=== PATIENT | female | born 1950 | race Caucasian/White ===

== ENCOUNTER 2018-08-07 13:55 | Observation (INO) ==
[2018-08-07] MEDS ORDERED: ASPIRIN 325 MG TABLET PO STA (14:37)
[2018-08-07 14:54] LABS: Basophils # 0.2 10*3/uL (0.0-0.2); Basophils % 1.4 % (0.0-0.8); Eosinophils # 0.3 10*3/uL (0.0-0.87); Eosinophils % 3.2 % (0.00-10.9); Hematocrit 41.4 VOL% (35.7-47.0); Hemoglobin 13.3 GM/DL (12.0-16.0); Immature Granulocytes % 1.4 %; Immature Granulocytes Absolute 0.15 #; Lymphocytes # 2.4 10*3/uL (1.4-4.0); Mean Corpuscular HGB Conc 32.1 GM/DL (32-36); Mean Corpuscular Volume 87.5 FL (87-102); Mean Platelet Volume 9.6 FL (9.6-12.0); Monocytes % 9.5 % (1.7-12.7); Neutrophils % 62.5 % (38.7-73.9); Platelet Count 320 T/CUMM (130-400); Red Blood Count 4.73 MC/CUMM (3.8-5.5); Red Cell Distribution Width 13.3 % (9.3-17.3); White Blood Count 10.8 T/CUMM (4-12)
[2018-08-07 15:02] LABS: PT Patient Result 10.4 SECS; Partial Thromboplastin Time 24.5 SECS (0-40)
[2018-08-07 15:22] LABS: Alanine Aminotransferase 19 U/L (13-56); Albumin 3.3 G/DL (3.4-5.0); Alkaline Phosphatase 134 U/L (45-117); Aspartate Amino Transferase 17 U/L (0-37); Bilirubin,Total < 0.39 MG/DL (0.2-1.0); Blood Urea Nitrogen 9 MG/DL (7-18); Glucose 118 MG/DL (74-106); Osmolality,Calculated 280.3 MOS/KG (273-304); Total Protein 7.3 G/DL (6.4-8.3)
[2018-08-07] MEDS ORDERED: ENOXAPARIN 100 MG/ML SYRINGE SUBCUT STA (15:39)
[2018-08-07] MEDS ORDERED: ZALEPLON 5 MG CAPSULE PO PRN (15:44)
[2018-08-07] MEDS ORDERED: guaiFENesin/DM ER 600-30 MG TABLET PO PRN (15:44)
[2018-08-07] MEDS ORDERED: PROMETHAZINE 25 MG TABLET PO PRN (15:44)
[2018-08-07] MEDS ORDERED: POTASSIUM CHLORIDE 20 MEQ TABLET PO PRN (15:44)
[2018-08-07] MEDS ORDERED: MAGNESIUM SULF RIDER 4 GM in PREMIX 1 EACH IV PRN (15:44)
[2018-08-07] MEDS ORDERED: DOCUSATE SODIUM 100 MG CAPSULE PO PRN (15:44)
[2018-08-07] MEDS ORDERED: ONDANSETRON 4 MG/2 ML VIAL IV PRN (15:44)
[2018-08-07] MEDS ORDERED: NICOTINE 21 MG/24 HR PATCH TRANSDERM PRN (15:44)
[2018-08-07] MEDS ORDERED: BISACODYL 5 MG TABLET PO PRN (15:44)
[2018-08-07] MEDS ORDERED: diphenhydrAMINE CAP 25 MG CAPSULE PO PRN (15:44)
[2018-08-07] MEDS ORDERED: MAGNESIUM SULF RIDER 2 GM in PREMIX 1 EACH IV PRN (15:44)
[2018-08-07] MEDS ORDERED: SODIUM CHLORIDE 0.9% 1,000 ML IV SCH (16:30)
[2018-08-07] MEDS ORDERED: FAMOTIDINE 20 MG TABLET PO PRN (16:43)
[2018-08-07] MEDS ORDERED: MORPHINE 4 MG/1 ML VIAL IV PRN (16:43)
[2018-08-07] MEDS ORDERED: COMBIVENT RESPIMAT INHALER INH PRN (16:43)
[2018-08-07] MEDS ORDERED: DIFLORASONE TOP PRN (16:43)
[2018-08-07] MEDS ORDERED: NITROGLYCERIN SL 0.4 MG TABLET SL STA (16:43)
[2018-08-07] MEDS ORDERED: SECUKINUMAB 150 MG SUBCUT SCH (16:45)
[2018-08-07] MEDS ORDERED: ALBUTEROL/IPRATROPIUM 3 ML NEB RESP TX PRN (16:45)
[2018-08-07] MEDS: THEOPHYLLINE ER 300 MG TABLET PO SCH (17:55)
[2018-08-07] MEDS ORDERED: GABAPENTIN 100 MG CAPSULE PO SCH (21:00)
[2018-08-07] MEDS ORDERED: MONTELUKAST 10 MG TABLET PO SCH (21:00)
[2018-08-07] MEDS ORDERED: ATORVASTATIN 20 MG TABLET PO SCH (21:00)
[2018-08-07] MEDS: BUDESONIDE/FORMOTEROL 160-4.5 INHALER 6 GM INH SCH (21:35)
[2018-08-07] MEDS: CYCLOBENZAPRINE 10 MG TABLET PO SCH (21:36)
[2018-08-07] MEDS: LOSARTAN 25 MG TABLET PO SCH (21:36)
[2018-08-07] MEDS: POTASSIUM CHLORIDE 10 MEQ TABLET PO SCH (21:36)
[2018-08-07] MEDS: NEBIVOLOL 10 MG TABLET PO SCH (21:36)
[2018-08-07] MEDS: CLORAZEPATE 3.75 MG TABLET PO SCH (21:36)
[2018-08-07] MEDS: MULTIVITAMIN (OCUVITE) TABLET PO SCH (21:37)
[2018-08-07] MEDS: PRIMIDONE 50 MG TABLET PO SCH (21:37)
[2018-08-07 22:44] LABS: Apearance,Urine CLEAR (Clear); Bilirubin,Urine Negative (Negative); Blood, Urine Negative (Negative); Glucose,Urine (UA) Negative (Negative); Ketones,Urine Negative (Negative); Nitrite,Urine Negative (Negative); Protein,Urine Negative; RBC,Urine <1 /HPF (0-4); Squamous Epithelial Cell,Urine Occasional /HPF (0-10); Urine Color Straw (Yellow); Urine Specific Gravity 1.005 (1.001-1.035); Urine Urobilinogen < 2.0 EU/DL (0.2-1.0); WBC,Urine 1 /HPF (0-6)
[2018-08-08 04:39] LABS: Basophils # 0.2 10*3/uL (0.0-0.2); Basophils % 1.4 % (0.0-0.8); Eosinophils # 0.4 10*3/uL (0.0-0.87); Eosinophils % 3.3 % (0.00-10.9); Hematocrit 38.2 VOL% (35.7-47.0); Hemoglobin 12.4 GM/DL (12.0-16.0); Immature Granulocytes % 0.9 %; Immature Granulocytes Absolute 0.11 #; Lymphocytes # 3.1 10*3/uL (1.4-4.0); Lymphocytes % 25.4 % (21.3-54.2); Mean Corpuscular HGB Conc 32.5 GM/DL (32-36); Mean Corpuscular Volume 88.4 FL (87-102); Mean Platelet Volume 9.9 FL (9.6-12.0); Monocytes % 9.9 % (1.7-12.7); Neutrophils % 59.1 % (38.7-73.9); Platelet Count 289 T/CUMM (130-400); Red Blood Count 4.32 MC/CUMM (3.8-5.5); Red Cell Distribution Width 13.4 % (9.3-17.3); White Blood Count 12.2 T/CUMM (4-12)
[2018-08-08 04:53] LABS: Blood Urea Nitrogen 12 MG/DL (7-18); CKMB % 9.1 %; Calcium 8.9 MG/DL (8.5-10.1); Glucose 115 MG/DL (74-106); Osmolality,Calculated 281.3 MOS/KG (273-304); Troponin I < 0.015 NG/ML (0.00-0.045)
[2018-08-08] MEDS ORDERED: FUROSEMIDE 20 MG TABLET PO SCH (09:00)
[2018-08-08] MEDS ORDERED: FLUoxetine 20 MG CAPSULE PO SCH (09:00)
[2018-08-08] MEDS ORDERED: GABAPENTIN 100 MG CAPSULE PO SCH (09:00)
[2018-08-08] MEDS ORDERED: CLOPIDOGREL 75 MG TABLET PO SCH (09:00)
[2018-08-08] MEDS ORDERED: ASPIRIN EC 81 MG TABLET PO SCH (09:00)
[2018-08-08] MEDS ORDERED: PANTOPRAZOLE 40 MG TABLET PO SCH (09:00)
[2018-08-08] MEDS: NEBIVOLOL 10 MG TABLET PO SCH (10:30)
[2018-08-08] MEDS: THEOPHYLLINE ER 300 MG TABLET PO SCH (10:30)
[2018-08-08] MEDS: MULTIVITAMIN (OCUVITE) TABLET PO SCH (10:30)
[2018-08-08] MEDS: POTASSIUM CHLORIDE 10 MEQ TABLET PO SCH (10:31)
[2018-08-08] MEDS: LOSARTAN 25 MG TABLET PO SCH (10:31)
[2018-08-08] MEDS: PRIMIDONE 50 MG TABLET PO SCH (10:31)
[2018-08-08] MEDS: CYCLOBENZAPRINE 10 MG TABLET PO SCH (10:31)
[2018-08-08] MEDS: BUDESONIDE/FORMOTEROL 160-4.5 INHALER 6 GM INH SCH (10:33)
[2018-08-08] MEDS: CLORAZEPATE 3.75 MG TABLET PO SCH (10:35)
[2018-08-08 12:08] VITALS: BP 159/72
== END 2018-08-08 12:25 | disposition home or self-care (01) ==
LOC: EDBD → EDUNIT# → N.ED 13:55 → N.EDINP 13:55 → N.TELES 16:37
PROVIDERS: ADMIT Internal Medicine Interventional Cardiology; ATTEND Internal Medicine Interventional Cardiology

== ENCOUNTER 2019-05-15 08:03 | Inpatient (IN) ==
[2019-05-17] MEDS ORDERED: VANCOMYCIN INJ 1,000 MG in SODIUM CHLORIDE 0.9% 250 ML IV ONE (09:44)
[2019-05-17] MEDS ORDERED: DEXTROSE 10% 250 ML BAG IV PRN (09:44)
[2019-05-17] MEDS ORDERED: GLUCAGON 1 MG VIAL IM PRN (09:44)
[2019-05-17 10:10] LABS: Basophils # 0.1 10*3/uL (0.0-0.2); Basophils % 0.7 % (0.0-0.8); Eosinophils # 0.3 10*3/uL (0.0-0.87); Eosinophils % 2.9 % (0.00-10.9); Hematocrit 39.1 VOL% (35.7-47.0); Hemoglobin 12.9 GM/DL (12.0-16.0); Immature Granulocytes % 1.1 %; Immature Granulocytes Absolute 0.12 #; Lymphocytes # 2.5 10*3/uL (1.4-4.0); Lymphocytes % 22.4 % (21.3-54.2); Mean Corpuscular Volume 87.5 FL (87-102); Mean Platelet Volume 9.3 FL (9.6-12.0); Monocytes % 11.8 % (1.7-12.7); Neutrophils % 61.1 % (38.7-73.9); Platelet Count 377 T/CUMM (130-400); Red Blood Count 4.47 MC/CUMM (3.8-5.5); Red Cell Distribution Width 14.1 % (9.3-17.3); White Blood Count 11.3 T/CUMM (4-12)
[2019-05-17 10:59] LABS: Albumin 3.5 G/DL (3.4-5.0); Bilirubin,Total 0.4 MG/DL (0.2-1.0); Calcium 9.6 MG/DL (8.5-10.1); Osmolality,Calculated 272.8 MOS/KG (273-304); Total Protein 7.7 G/DL (6.4-8.3)
[2019-05-17 11:11] LABS: ABG Base Excess 1.2 MMOL/L (-2.5-2.5); ABG HCO3 25.5 MMOL/L (20-26); ABG PCO2 38.3 MM HG (35-48); ABG PO2 81.6 MM HG (80-95); ABG TCO2 22.2 MMOL/L (23-27)
[2019-05-17] MEDS ORDERED: NITROGLYCERIN SL 0.4 MG TABLET SL PRN (11:59)
[2019-05-17] MEDS ORDERED: CLORAZEPATE 3.75 MG TABLET PO PRN (13:09)
[2019-05-17] MEDS ORDERED: hydrALAZINE 20 MG/1 ML VIAL IV PRN (13:10)
[2019-05-17] MEDS: ASPIRIN EC 81 MG TABLET PO SCH (13:43)
[2019-05-17] MEDS: NEBIVOLOL 10 MG TABLET PO SCH ×2 (13:43→20:18)
[2019-05-17] MEDS: LOSARTAN 25 MG TABLET PO SCH ×2 (13:43→20:18)
[2019-05-17] MEDS: ISOSORBIDE MONONITRATE 30 MG TABLET PO SCH (13:44)
[2019-05-17] MEDS: FUROSEMIDE 40 MG TABLET PO SCH (13:44)
[2019-05-17] MEDS: POTASSIUM CHLORIDE 10 MEQ TABLET PO SCH ×2 (13:44→20:18)
[2019-05-17] MEDS: CHLORHEXIDINE 4% SOLN 118 ML BOTTLE TOP SCH ×2 (15:22→20:19)
[2019-05-17] MEDS: CHLORHEXIDINE 0.12% ORAL RINSE 60 ML BOTTLE SWISH/SPIT SCH ×2 (20:42→21:10)
[2019-05-17] MEDS ORDERED: ATORVASTATIN 40 MG TABLET PO SCH (21:00)
[2019-05-18] MEDS ORDERED: PAPAVERINE 60 MG/2 ML VIAL ONE (04:22)
[2019-05-18] MEDS ORDERED: VANCOMYCIN 500 MG VIAL ONE (04:22)
[2019-05-18] MEDS ORDERED: VANCOMYCIN 1,000 MG VIAL ONE ×2 (04:22→06:47)
[2019-05-18] MEDS ORDERED: VANCOMYCIN INJ 1,000 MG in SODIUM CHLORIDE 0.9% 250 ML IV ONE (05:30)
[2019-05-18] MEDS ORDERED: HEPARIN/NACL 0.9% 2 UNITS/ML 500 ML IV ONE (06:19)
[2019-05-18] MEDS ORDERED: PHENYLEPHRINE DRIP 20 MG/250 ML PREMIX IV ONE ×2 (06:19→12:44)
[2019-05-18] MEDS ORDERED: SUFentanil 250 MCG/5 ML AMP ONE (06:20)
[2019-05-18] MEDS ORDERED: MIDAZOLAM 10 MG/2 ML VIAL ONE (06:20)
[2019-05-18] MEDS ORDERED: NITROGLYCERIN DRIP 50 MG/250 ML BOTTLE IV ONE (06:20)
[2019-05-18] MEDS ORDERED: AMINOCAPROIC ACID 5,000 MG/20 ML VIAL ONE (06:21)
[2019-05-18 07:32] LABS: ABG HCO3 23.6 MMOL/L (20-26); ABG PCO2 47.7 MM HG (35-48); ABG PH 7.333 (7.35-7.45); ABG TCO2 22.7 MMOL/L (23-27); Glucose Heart Surgery 124 MG/DL (74-106); Hematocrit Heart Surgery 35.2 PERCENT (37-47); Hemoglobin Heart Surgery 11.4 G/DL (12.0-16.0); Ionized Calcium Arterial 1.52 MMOL/L (1.21-1.46); PCO2 Patient Temp Arterial 47.7 MMHG; PH Patient Temp Arterial 7.333; Patient Temperature 37 CELCIUS; Potassium Heart/CVR 3.3 MMOL/L (3.5-5.1); Sodium Heart/CVR 140 MMOL/L (135-145)
[2019-05-18 08:05] LABS: Apearance,Urine CLEAR (Clear); Bacteria,Urine Occasional /HPF (Few); Bilirubin,Urine Negative (Negative); Blood, Urine Negative (Negative); Glucose,Urine (UA) Negative (Negative); Hyaline Casts,Urine 2 /LPF (0-3); Ketones,Urine Negative (Negative); Mucus,Urine Many /LPF (Occasional); Nitrite,Urine Negative (Negative); Protein,Urine Negative; RBC,Urine 2 /HPF (0-4); Squamous Epithelial Cell,Urine Occasional /HPF (0-10); Urine Color Amber (Yellow); Urine Specific Gravity 1.019 (1.001-1.035); Urine Urobilinogen < 2.0 EU/DL (0.2-1.0); WBC,Urine 3 /HPF (0-6)
[2019-05-18] MEDS ORDERED: POTASSIUM CHLORIDE RIDER 100 ML IV ONE (08:09)
[2019-05-18] MEDS ORDERED: NITROPRUSSIDE 50 MG/2 ML VIAL ONE ×2 (08:09→09:18)
[2019-05-18] MEDS ORDERED: CALCIUM CHLORIDE 1,000 MG/10 ML SYRINGE IV ONE (08:09)
[2019-05-18] MEDS ORDERED: SODIUM BICARBONATE 50 MEQ/50 ML VIAL IV ONE ×2 (08:09→11:19)
[2019-05-18] MEDS ORDERED: ALBUMIN 5% 12.5 GM/250 ML VIAL IV ONE (08:10)
[2019-05-18 08:57] LABS: Hematocrit Heart Surgery 23.1 PERCENT (37-47); Hemoglobin Heart Surgery 7.4 G/DL (12.0-16.0); PCO2 Patient Temp Venous 33.6 MM HG; PH Patient Temp Venous 7.477; PO2 Patient Temp Venous 32.2 MM HG; Potassium Heart/CVR 4.2 MMOL/L (3.5-5.1); VBG Base Excess 1.6 MEQ/L (0-4); VBG HCO3 25.6 MEQ/L (24-28); VBG Oxygen Saturation 77.1 %; VBG PCO2 38.8 MMHG (41-51); VBG PH 7.432; VBG PO2 39.6 MMHG (17-40)
[2019-05-18] MEDS ORDERED: PHENYLEPHRINE DRIP 40 MG/250 ML PREMIX IV ONE (09:18)
[2019-05-18 09:27] LABS: Hematocrit Heart Surgery 24.2 PERCENT (37-47); Hemoglobin Heart Surgery 7.8 G/DL (12.0-16.0); PH Patient Temp Venous 7.481; PO2 Patient Temp Venous 33.6 MM HG; Potassium Heart/CVR 3.7 MMOL/L (3.5-5.1); VBG Base Excess 0.8 MEQ/L (0-4); VBG HCO3 24.9 MEQ/L (24-28); VBG Oxygen Saturation 79.6 %; VBG PH 7.436; VBG PO2 41.4 MMHG (17-40)
[2019-05-18 10:06] LABS: Hemoglobin Heart Surgery 9.6 G/DL (12.0-16.0); PCO2 Patient Temp Venous 29.6 MM HG; PH Patient Temp Venous 7.525; PO2 Patient Temp Venous 33.6 MM HG; Potassium Heart/CVR 3.5 MMOL/L (3.5-5.1); VBG Base Excess 1.2 MEQ/L (0-4); VBG HCO3 24.6 MEQ/L (24-28); VBG Oxygen Saturation 79.7 %; VBG PCO2 33.8 MMHG (41-51); VBG PH 7.479; VBG PO2 41.5 MMHG (17-40)
[2019-05-18 10:40] LABS: Hematocrit Heart Surgery 23.1 PERCENT (37-47); Hemoglobin Heart Surgery 7.4 G/DL (12.0-16.0); PH Patient Temp Venous 7.455; PO2 Patient Temp Venous 33.1 MM HG; Potassium Heart/CVR 3.9 MMOL/L (3.5-5.1); VBG Base Excess 1.5 MEQ/L (0-4); VBG HCO3 25.4 MEQ/L (24-28); VBG Oxygen Saturation 67.5 %; VBG PH 7.455; VBG PO2 33.1 MMHG (17-40)
[2019-05-18] MEDS ORDERED: THROMBIN TOPICAL (RECOMBINANT) 5,000 UNIT VIAL TOP ONE ×2 (10:44→11:44)
[2019-05-18 11:10] LABS: ABG Base Excess -1.7 MMOL/L (-2.5-2.5); ABG PCO2 37.4 MM HG (35-48); ABG PH 7.395 (7.35-7.45); ABG TCO2 21.5 MMOL/L (23-27); Glucose Heart Surgery 206 MG/DL (74-106); Hemoglobin Heart Surgery 7.4 G/DL (12.0-16.0); Ionized Calcium Arterial 1.62 MMOL/L (1.21-1.46); PCO2 Patient Temp Arterial 37.4 MMHG; PH Patient Temp Arterial 7.395; Patient Temperature 37 CELCIUS; Potassium Heart/CVR 3.4 MMOL/L (3.5-5.1); Sodium Heart/CVR 137 MMOL/L (135-145)
[2019-05-18] MEDS ORDERED: DEXTROSE 5% KCL 20 MEQ 20 MEQ/1,000 ML BAG IV ONE (11:19)
[2019-05-18] MEDS ORDERED: PROTAMINE SULFATE 250 MG/25 ML VIAL IV ONE (11:19)
[2019-05-18] MEDS ORDERED: HEPARIN 10,000 UNIT/10 ML VIAL ONE (11:19)
[2019-05-18] MEDS ORDERED: MANNITOL 100 GM/500 ML BAG IV ONE (11:19)
[2019-05-18] MEDS ORDERED: FUROSEMIDE 20 MG/2 ML VIAL ONE (11:19)
[2019-05-18] MEDS ORDERED: LIDOCAINE 2% 5 ML VIAL ONE ×2 (11:19→12:44)
[2019-05-18] MEDS ORDERED: MAGNESIUM SULFATE 5 GM/10 ML VIAL IV ONE (11:19)
[2019-05-18] MEDS ORDERED: methylPREDNISolone SOD SUC 1,000 MG/8 ML VIAL ONE (11:19)
[2019-05-18] MEDS ORDERED: ALBUMIN 25% 25 GM/100 ML VIAL IV ONE (11:19)
[2019-05-18] MEDS ORDERED: POTASSIUM CHLORIDE 20 MEQ/10 ML VIAL ONE (11:20)
[2019-05-18] MEDS ORDERED: PROTAMINE SULFATE 50 MG/5 ML VIAL IV ONE (11:20)
[2019-05-18] MEDS: NEBIVOLOL 10 MG TABLET PO SCH (11:53)
[2019-05-18] MEDS: CHLORHEXIDINE 4% SOLN 118 ML BOTTLE TOP SCH (11:53)
[2019-05-18] MEDS: LOSARTAN 25 MG TABLET PO SCH (11:53)
[2019-05-18] MEDS: POTASSIUM CHLORIDE 10 MEQ TABLET PO SCH (11:53)
[2019-05-18] MEDS: ISOSORBIDE MONONITRATE 30 MG TABLET PO SCH (11:53)
[2019-05-18] MEDS: ASPIRIN EC 81 MG TABLET PO SCH (11:53)
[2019-05-18] MEDS: FUROSEMIDE 40 MG TABLET PO SCH (11:53)
[2019-05-18] MEDS: CHLORHEXIDINE 0.12% ORAL RINSE 60 ML BOTTLE SWISH/SPIT SCH ×2 (11:53→20:38)
[2019-05-18] MEDS ORDERED: CALCIUM CHLORIDE 1,000 MG/10 ML VIAL IV ONE (12:44)
[2019-05-18] MEDS ORDERED: ePHEDrine 50 MG/ML AMP ONE (12:45)
[2019-05-18] MEDS ORDERED: ETOMIDATE 40 MG/20 ML VIAL IV ONE (12:45)
[2019-05-18] MEDS ORDERED: DEXAMETHASONE 4 MG/1 ML VIAL ONE (12:45)
[2019-05-18] MEDS ORDERED: MINERAL OIL/PETROLATUM OPH OINT 3.5 GM TUBE ONE (12:45)
[2019-05-18] MEDS ORDERED: PHENYLEPHRINE 1 MG/10 ML SYRINGE IV ONE (12:45)
[2019-05-18] MEDS ORDERED: ONDANSETRON 4 MG/2 ML VIAL ONE (12:45)
[2019-05-18] MEDS ORDERED: ROCURONIUM 100 MG/10 ML VIAL IV ONE (12:46)
[2019-05-18] MEDS ORDERED: SODIUM CHLORIDE 0.9% 250 ML IV ONE (12:46)
[2019-05-18] MEDS ORDERED: SODIUM CHLORIDE 0.9% 1,000 ML IV ONE (12:46)
[2019-05-18] MEDS ORDERED: LACTATED RINGERS 1,000 ML IV ONE (12:46)
[2019-05-18] MEDS ORDERED: SEVOFLURANE 1 UNIT/15 MINUTE INH ONE (12:50)
[2019-05-18] MEDS ORDERED: INSULIN REGULAR 100 UNIT/ML IV ONE (12:52)
[2019-05-18] MEDS ORDERED: DEXTROSE 10% 250 ML BAG IV PRN ×2 (12:52)
[2019-05-18] MEDS ORDERED: ONDANSETRON 4 MG/2 ML VIAL IV PRN (12:52)
[2019-05-18] MEDS ORDERED: MIDAZOLAM 2 MG/2 ML VIAL IV PRN (12:52)
[2019-05-18] MEDS ORDERED: NITROPRUSSIDE 100 MG in DEXTROSE 5% 250 ML IV PRN (12:52)
[2019-05-18] MEDS ORDERED: INSULIN REGULAR 100 UNIT/ML IV PRN (12:52)
[2019-05-18] MEDS ORDERED: MIDAZOLAM 10 MG/2 ML VIAL IV PRN (12:52)
[2019-05-18] MEDS ORDERED: PHENYLEPHRINE DRIP 40 MG/250 ML PREMIX IV PRN (12:52)
[2019-05-18] MEDS ORDERED: CHLORHEXIDINE 4% SOLN 118 ML BOTTLE TOP PRN (12:52)
[2019-05-18] MEDS ORDERED: ACETAMINOPHEN 650 MG SUPP RECTAL PRN (12:52)
[2019-05-18] MEDS ORDERED: CALCIUM CHLORIDE 1,000 MG/10 ML SYRINGE IV PRN (12:52)
[2019-05-18] MEDS ORDERED: MORPHINE 10 MG/1 ML VIAL IV PRN (12:52)
[2019-05-18] MEDS ORDERED: VECURONIUM 10 MG VIAL IV PRN ×2 (12:52)
[2019-05-18] MEDS ORDERED: MAGNESIUM SULF RIDER 2 GM in PREMIX 1 EACH IV PRN (12:52)
[2019-05-18] MEDS ORDERED: MAGNESIUM SULF RIDER 4 GM in PREMIX 1 EACH IV PRN (12:52)
[2019-05-18 12:55] LABS: ABG Base Excess -2.2 MMOL/L (-2.5-2.5); ABG HCO3 22.6 MMOL/L (20-26); ABG Oxygen Saturation 97.9 % (95-100); ABG PCO2 45.8 MM HG (35-48); ABG PH 7.325 (7.35-7.45); ABG TCO2 22.3 MMOL/L (23-27); Glucose Heart Surgery 195 MG/DL (74-106); Hematocrit Heart Surgery 25.4 PERCENT (37-47); Hemoglobin Heart Surgery 8.2 G/DL (12.0-16.0); Potassium Heart/CVR 3.7 MMOL/L (3.5-5.1)
[2019-05-18 13:00] LABS: Basophils # 0.1 10*3/uL (0.0-0.2); Basophils % 0.4 % (0.0-0.8); Eosinophils # 0.1 10*3/uL (0.0-0.87); Eosinophils % 0.7 % (0.00-10.9); Hemoglobin 8.3 GM/DL (12.0-16.0); Immature Granulocytes % 1.2 %; Immature Granulocytes Absolute 0.21 #; Lymphocytes # 1.5 10*3/uL (1.4-4.0); Mean Corpuscular HGB Conc 31.9 GM/DL (32-36); Mean Corpuscular Volume 90.3 FL (87-102); Mean Platelet Volume 9.7 FL (9.6-12.0); Monocytes % 6.4 % (1.7-12.7); Neutrophils % 82.3 % (38.7-73.9); Platelet Count 380 T/CUMM (130-400); Red Blood Count 2.88 MC/CUMM (3.8-5.5); Red Cell Distribution Width 14.3 % (9.3-17.3); White Blood Count 16.9 T/CUMM (4-12)
[2019-05-18 13:26] LABS: INR 1.1; PT Patient Result 11.5 SECS (9.6-12.2)
[2019-05-18 13:28] LABS: CKMB % 5.6 %
[2019-05-18 13:40] LABS: Albumin 3.2 G/DL (3.4-5.0); Bilirubin,Total 0.9 MG/DL (0.2-1.0); Osmolality,Calculated 286.1 MOS/KG (273-304); Total Protein 5.7 G/DL (6.4-8.3)
[2019-05-18] MEDS: SODIUM CHLORIDE 0.45% 1,000 ML IV SCH ×2 (13:47)
[2019-05-18] MEDS: ALBUMIN 5% 12.5 GM in PREMIX 1 EACH IV PRN ×2 (13:48→16:14)
[2019-05-18] MEDS: POTASSIUM CHLORIDE RIDER 20 MEQ in PREMIX 1 EACH IV PRN ×3 (13:49→16:04)
[2019-05-18 14:13] LABS: Troponin I 5.99 NG/ML (0.00-0.045)
[2019-05-18] MEDS: INSULIN REGULAR DRIP 100 ML IV SCH (14:25)
[2019-05-18] MEDS: MORPHINE 4 MG/1 ML VIAL IV PRN ×2 (15:40→20:35)
[2019-05-18 15:52] LABS: ABG Base Excess -1.8 MMOL/L (-2.5-2.5); ABG HCO3 22.9 MMOL/L (20-26); ABG Oxygen Saturation 99.4 % (95-100); ABG PCO2 50.5 MM HG (35-48); ABG PH 7.303 (7.35-7.45); ABG TCO2 22.9 MMOL/L (23-27); Glucose Heart Surgery 160 MG/DL (74-106); Hematocrit Heart Surgery 31.9 PERCENT (37-47); Hemoglobin Heart Surgery 10.3 G/DL (12.0-16.0); Potassium Heart/CVR 4.4 MMOL/L (3.5-5.1)
[2019-05-18] MEDS: LACTATED RINGERS 250 ML IV PRN ×4 (16:14→18:29)
[2019-05-18 17:54] LABS: ABG Base Excess -1.6 MMOL/L (-2.5-2.5); ABG HCO3 23.1 MMOL/L (20-26); ABG Oxygen Saturation 98.2 % (95-100); ABG PCO2 49.9 MM HG (35-48); ABG PH 7.309 (7.35-7.45); Glucose Heart Surgery 124 MG/DL (74-106); Hematocrit Heart Surgery 30.9 PERCENT (37-47); Potassium Heart/CVR 4.5 MMOL/L (3.5-5.1)
[2019-05-18] MEDS: SODIUM CHLORIDE 0.9% 1,000 ML IV SCH (19:49)
[2019-05-18 20:07] LABS: ABG HCO3 23.5 MMOL/L (20-26); ABG Oxygen Saturation 98.4 % (95-100); ABG PCO2 47.8 MM HG (35-48); ABG TCO2 23.2 MMOL/L (23-27); Glucose Heart Surgery 98 MG/DL (74-106); Hematocrit Heart Surgery 29.8 PERCENT (37-47); Hemoglobin Heart Surgery 9.6 G/DL (12.0-16.0); Potassium Heart/CVR 4.5 MMOL/L (3.5-5.1)
[2019-05-18] MEDS: POTASSIUM CHLORIDE RIDER 10 MEQ in PREMIX 1 EACH IV PRN (20:32)
[2019-05-18 20:37] LABS: CKMB % 6.6 %
[2019-05-18 20:48] LABS: Troponin I 6.67 NG/ML (0.00-0.045)
[2019-05-18 20:54] LABS: ABG Base Excess -1.2 MMOL/L (-2.5-2.5); ABG HCO3 23.4 MMOL/L (20-26); ABG Oxygen Saturation 98.9 % (95-100); ABG PCO2 47.8 MM HG (35-48); ABG PH 7.327 (7.35-7.45); ABG TCO2 23.1 MMOL/L (23-27); Glucose Heart Surgery 111 MG/DL (74-106); Hemoglobin Heart Surgery 9.7 G/DL (12.0-16.0); Potassium Heart/CVR 5.1 MMOL/L (3.5-5.1)
[2019-05-18] MEDS ORDERED: FUROSEMIDE 40 MG/4 ML VIAL IV ONE (21:04)
[2019-05-19] LABS: ABG HCO3 24.4 MMOL/L (20-26); ABG Oxygen Saturation 97.5 % (95-100); ABG PCO2 51.5 MM HG (35-48); ABG PH 7.323 (7.35-7.45); ABG PO2 96.5 MM HG (80-95); ABG TCO2 24.5 MMOL/L (23-27); Glucose Heart Surgery 132 MG/DL (74-106); Hematocrit Heart Surgery 31.1 PERCENT (37-47); Potassium Heart/CVR 4.5 MMOL/L (3.5-5.1)
[2019-05-19] MEDS: VANCOMYCIN INJ 1,000 MG in SODIUM CHLORIDE 0.9% 250 ML IV SCH ×3 (00:36→23:50)
[2019-05-19] MEDS: MORPHINE 4 MG/1 ML VIAL IV PRN ×2 (00:44→23:49)
[2019-05-19] MEDS: POTASSIUM CHLORIDE RIDER 10 MEQ in PREMIX 1 EACH IV PRN (01:00)
[2019-05-19 02:57] LABS: ABG Base Excess -0.8 MMOL/L (-2.5-2.5); ABG HCO3 23.8 MMOL/L (20-26); ABG Oxygen Saturation 97.5 % (95-100); ABG PCO2 51.4 MM HG (35-48); ABG PH 7.312 (7.35-7.45); ABG PO2 95.5 MM HG (80-95); ABG TCO2 23.8 MMOL/L (23-27); Glucose Heart Surgery 130 MG/DL (74-106); Hematocrit Heart Surgery 31.5 PERCENT (37-47); Hemoglobin Heart Surgery 10.2 G/DL (12.0-16.0); Potassium Heart/CVR 4.6 MMOL/L (3.5-5.1)
[2019-05-19 03:47] LABS: ABG Base Excess -0.4 MMOL/L (-2.5-2.5); ABG HCO3 24.1 MMOL/L (20-26); ABG Oxygen Saturation 97.9 % (95-100); ABG PCO2 49.7 MM HG (35-48); ABG PH 7.329 (7.35-7.45); ABG TCO2 23.6 MMOL/L (23-27); Glucose Heart Surgery 124 MG/DL (74-106); Hematocrit Heart Surgery 34.6 PERCENT (37-47); Hemoglobin Heart Surgery 11.2 G/DL (12.0-16.0); Potassium Heart/CVR 4.4 MMOL/L (3.5-5.1)
[2019-05-19 03:52] LABS: Basophils # 0.1 10*3/uL (0.0-0.2); Basophils % 0.3 % (0.0-0.8); Hematocrit 29.5 VOL% (35.7-47.0); Hemoglobin 9.6 GM/DL (12.0-16.0); Immature Granulocytes % 0.5 %; Immature Granulocytes Absolute 0.08 #; Lymphocytes # 1.6 10*3/uL (1.4-4.0); Lymphocytes % 9.4 % (21.3-54.2); Mean Corpuscular HGB Conc 32.5 GM/DL (32-36); Mean Corpuscular Volume 88.1 FL (87-102); Mean Platelet Volume 10.1 FL (9.6-12.0); Monocytes % 10.5 % (1.7-12.7); Neutrophils % 79.3 % (38.7-73.9); Platelet Count 246 T/CUMM (130-400); Red Blood Count 3.35 MC/CUMM (3.8-5.5); Red Cell Distribution Width 14.9 % (9.3-17.3); White Blood Count 17.1 T/CUMM (4-12)
[2019-05-19] MEDS ORDERED: FUROSEMIDE 40 MG/4 ML VIAL IV ONE (03:58)
[2019-05-19] MEDS: POTASSIUM CHLORIDE RIDER 20 MEQ in PREMIX 1 EACH IV PRN ×2 (04:00→08:09)
[2019-05-19 04:16] LABS: Albumin 3.6 G/DL (3.4-5.0); Bilirubin,Direct 0.19 MG/DL (0.0-0.20); Bilirubin,Total 0.6 MG/DL (0.2-1.0); Calcium 8.7 MG/DL (8.5-10.1); Osmolality,Calculated 284.1 MOS/KG (273-304)
[2019-05-19 04:20] LABS: CKMB % 7.6 %
[2019-05-19 04:37] LABS: Troponin I 8.5 NG/ML (0.00-0.045)
[2019-05-19 08:04] LABS: ABG Base Excess 0.3 MMOL/L (-2.5-2.5); ABG HCO3 24.7 MMOL/L (20-26); ABG Oxygen Saturation 98.2 % (95-100); ABG PCO2 52.2 MM HG (35-48); ABG PH 7.322 (7.35-7.45); ABG TCO2 24.8 MMOL/L (23-27); Glucose Heart Surgery 114 MG/DL (74-106); Hematocrit Heart Surgery 30.9 PERCENT (37-47); Potassium Heart/CVR 4.2 MMOL/L (3.5-5.1)
[2019-05-19] MEDS ORDERED: CLORAZEPATE 3.75 MG TABLET PO PRN (09:21)
[2019-05-19] MEDS: oxyCODONE/ACETAMINOPHEN 5-325 MG TABLET PO PRN ×3 (09:42→22:30)
[2019-05-19] MEDS: CHLORHEXIDINE 0.12% ORAL RINSE 60 ML BOTTLE SWISH/SPIT SCH ×2 (09:43→21:36)
[2019-05-19] MEDS: INSULIN REGULAR 100 UNIT/ML SUBCUT SCH ×4 (11:08→19:36)
[2019-05-19 12:59] LABS: CKMB % 7.9 %
[2019-05-19 13:01] LABS: Troponin I 9.54 NG/ML (0.00-0.045)
[2019-05-19] MEDS: INSULIN REGULAR DRIP 100 ML IV SCH (14:08)
[2019-05-19] MEDS: SODIUM CHLORIDE 0.45% 1,000 ML IV SCH ×2 (14:08→21:32)
[2019-05-19] MEDS: ACETAMINOPHEN 325 MG TABLET PO PRN (16:24)
[2019-05-19] MEDS: LOSARTAN 25 MG TABLET PO SCH (21:34)
[2019-05-19] MEDS: NEBIVOLOL 10 MG TABLET PO SCH (21:35)
[2019-05-20] MEDS: INSULIN REGULAR 100 UNIT/ML SUBCUT SCH ×3 (00:58→08:30)
[2019-05-20] MEDS: ACETAMINOPHEN 325 MG TABLET PO PRN (04:15)
[2019-05-20 05:32] LABS: Basophils # 0.1 10*3/uL (0.0-0.2); Basophils % 0.7 % (0.0-0.8); Eosinophils # 0.2 10*3/uL (0.0-0.87); Eosinophils % 1.1 % (0.00-10.9); Hematocrit 29.9 VOL% (35.7-47.0); Hemoglobin 9.3 GM/DL (12.0-16.0); Immature Granulocytes % 0.8 %; Immature Granulocytes Absolute 0.13 #; Lymphocytes # 2.2 10*3/uL (1.4-4.0); Lymphocytes % 12.9 % (21.3-54.2); Mean Corpuscular HGB Conc 31.1 GM/DL (32-36); Mean Corpuscular Volume 91.2 FL (87-102); Mean Platelet Volume 10.1 FL (9.6-12.0); Monocytes % 12.4 % (1.7-12.7); Neutrophils % 72.1 % (38.7-73.9); Platelet Count 266 T/CUMM (130-400); Red Blood Count 3.28 MC/CUMM (3.8-5.5); Red Cell Distribution Width 15.3 % (9.3-17.3); White Blood Count 16.9 T/CUMM (4-12)
[2019-05-20 05:46] LABS: Albumin 2.8 G/DL (3.4-5.0); Bilirubin,Direct 0.18 MG/DL (0.0-0.20); Bilirubin,Total 1.2 MG/DL (0.2-1.0); Calcium 8.7 MG/DL (8.5-10.1); Osmolality,Calculated 274.8 MOS/KG (273-304)
[2019-05-20] MEDS: POTASSIUM CHLORIDE RIDER 20 MEQ in PREMIX 1 EACH IV PRN ×2 (06:03→08:31)
[2019-05-20] MEDS ORDERED: CLORAZEPATE 3.75 MG TABLET PO PRN (08:03)
[2019-05-20] MEDS ORDERED: MAGNESIUM SULF RIDER 4 GM in PREMIX 1 EACH IV PRN (08:08)
[2019-05-20] MEDS ORDERED: ZALEPLON 5 MG CAPSULE PO PRN (08:08)
[2019-05-20] MEDS ORDERED: MAGNESIUM HYDROXIDE SUSP 30 ML UDCUP PO PRN (08:08)
[2019-05-20] MEDS ORDERED: ONDANSETRON 4 MG/2 ML VIAL IV PRN (08:08)
[2019-05-20] MEDS ORDERED: DEXTROSE 10% 250 ML BAG IV PRN (08:08)
[2019-05-20] MEDS ORDERED: ACETAMINOPHEN 325 MG TABLET PO PRN (08:08)
[2019-05-20] MEDS ORDERED: GLUCAGON 1 MG VIAL IM PRN ×2 (08:08)
[2019-05-20] MEDS ORDERED: POTASSIUM CHLORIDE 20 MEQ TABLET PO PRN (08:08)
[2019-05-20] MEDS ORDERED: ALUMINUM/MAGNES/SIMETH MAX STR 30 ML UDCUP PO PRN (08:08)
[2019-05-20] MEDS ORDERED: DEXTROSE 50% 25 GM/50 ML VIAL IV PRN (08:08)
[2019-05-20] MEDS ORDERED: MAGNESIUM SULF RIDER 2 GM in PREMIX 1 EACH IV PRN (08:08)
[2019-05-20] MEDS: CHLORHEXIDINE 0.12% ORAL RINSE 60 ML BOTTLE SWISH/SPIT SCH ×3 (08:14→21:36)
[2019-05-20] MEDS: oxyCODONE/ACETAMINOPHEN 5-325 MG TABLET PO PRN (08:15)
[2019-05-20] MEDS: LOSARTAN 25 MG TABLET PO SCH ×2 (08:15→20:36)
[2019-05-20] MEDS: NEBIVOLOL 10 MG TABLET PO SCH ×2 (08:15→20:36)
[2019-05-20] MEDS ORDERED: SODIUM CHLOR 0.45% KCL 20 MEQ 20 MEQ/1,000 ML BAG IV SCH (08:30)
[2019-05-20] MEDS: KETOROLAC 30 MG/1 ML VIAL IM SCH ×2 (09:00→15:02)
[2019-05-20] MEDS: ASPIRIN EC 325 MG TABLET PO SCH (09:00)
[2019-05-20] MEDS: DOCUSATE SODIUM 100 MG CAPSULE PO SCH (09:00)
[2019-05-20] MEDS: FERROUS SULFATE 325 MG TABLET PO SCH (09:00)
[2019-05-20] MEDS ORDERED: NEBIVOLOL 10 MG TABLET PO SCH (09:00)
[2019-05-20] MEDS ORDERED: SECUKINUMAB 300 MG SUBCUT SCH (09:55)
[2019-05-20] MEDS ORDERED: DIFLORASONE TOP PRN (09:55)
[2019-05-20] MEDS: GABAPENTIN 100 MG CAPSULE PO SCH ×2 (10:55→20:35)
[2019-05-20] MEDS: PRIMIDONE 50 MG TABLET PO SCH ×2 (10:55→20:35)
[2019-05-20] MEDS: VENLAFAXINE 37.5 MG TABLET PO SCH ×2 (10:55→20:39)
[2019-05-20] MEDS: FAMOTIDINE 20 MG TABLET PO SCH ×2 (10:55→20:35)
[2019-05-20] MEDS: CYCLOBENZAPRINE 10 MG TABLET PO SCH ×2 (10:55→20:35)
[2019-05-20] MEDS: traMADol 50 MG TABLET PO SCH ×2 (10:55→20:36)
[2019-05-20] MEDS: MULTIVITAMIN (OCUVITE) TABLET PO SCH ×2 (10:55→20:35)
[2019-05-20] MEDS ORDERED: ALBUTEROL/IPRATROPIUM 3 ML NEB RESP TX PRN (11:00)
[2019-05-20] MEDS: BUDESONIDE/FORMOTEROL 160-4.5 INHALER 6 GM INH SCH ×2 (11:44→20:49)
[2019-05-20] MEDS: KETOROLAC 30 MG/1 ML VIAL IV SCH ×2 (16:15→21:39)
[2019-05-20] MEDS: THEOPHYLLINE ER 300 MG TABLET PO SCH (16:40)
[2019-05-20] MEDS: MONTELUKAST 10 MG TABLET PO SCH (20:35)
[2019-05-21] MEDS: KETOROLAC 30 MG/1 ML VIAL IV SCH ×4 (04:11→21:14)
[2019-05-21 05:06] LABS: Basophils # 0.1 10*3/uL (0.0-0.2); Basophils % 0.5 % (0.0-0.8); Eosinophils # 0.4 10*3/uL (0.0-0.87); Eosinophils % 2.9 % (0.00-10.9); Hematocrit 32.7 VOL% (35.7-47.0); Hemoglobin 9.9 GM/DL (12.0-16.0); Immature Granulocytes % 1.2 %; Immature Granulocytes Absolute 0.17 #; Lymphocytes % 13.6 % (21.3-54.2); Mean Corpuscular HGB Conc 30.3 GM/DL (32-36); Mean Corpuscular Volume 92.6 FL (87-102); Mean Platelet Volume 10.6 FL (9.6-12.0); Monocytes % 9.4 % (1.7-12.7); Neutrophils % 72.4 % (38.7-73.9); Platelet Count 242 T/CUMM (130-400); Red Blood Count 3.53 MC/CUMM (3.8-5.5); Red Cell Distribution Width 15.1 % (9.3-17.3); White Blood Count 14.7 T/CUMM (4-12)
[2019-05-21 05:21] LABS: Alanine Aminotransferase 19 U/L (13-56); Albumin 2.5 G/DL (3.4-5.0); Alkaline Phosphatase 67 U/L (45-117); Aspartate Amino Transferase 33 U/L (0-37); Bilirubin,Indirect 0.3 MG/DL (0.0-1.0); Blood Urea Nitrogen 27 MG/DL (7-18); Calcium 8.5 MG/DL (8.5-10.1); Estimated Glom Filtration Rate 78 ML/MIN; Glucose 89 MG/DL (74-106); Osmolality,Calculated 276.8 MOS/KG (273-304); Total Protein 5.9 G/DL (6.4-8.3)
[2019-05-21] MEDS ORDERED: FUROSEMIDE 40 MG/4 ML VIAL IV ONE ×2 (06:00→16:00)
[2019-05-21] MEDS ORDERED: ALBUTEROL/IPRATROPIUM 3 ML NEB RESP TX ONE (09:20)
[2019-05-21] MEDS: THEOPHYLLINE ER 300 MG TABLET PO SCH ×2 (10:01→17:19)
[2019-05-21] MEDS: traMADol 50 MG TABLET PO SCH ×2 (10:03→21:15)
[2019-05-21] MEDS: CHLORHEXIDINE 0.12% ORAL RINSE 60 ML BOTTLE SWISH/SPIT SCH ×2 (10:04→21:17)
[2019-05-21] MEDS: ASPIRIN EC 325 MG TABLET PO SCH (10:04)
[2019-05-21] MEDS: FERROUS SULFATE 325 MG TABLET PO SCH (10:05)
[2019-05-21] MEDS: FAMOTIDINE 20 MG TABLET PO SCH ×2 (10:05→21:16)
[2019-05-21] MEDS: MULTIVITAMIN (OCUVITE) TABLET PO SCH ×2 (10:05→21:15)
[2019-05-21] MEDS: CYCLOBENZAPRINE 10 MG TABLET PO SCH ×2 (10:05→21:17)
[2019-05-21] MEDS: PRIMIDONE 50 MG TABLET PO SCH ×2 (10:06→21:16)
[2019-05-21] MEDS: DOCUSATE SODIUM 100 MG CAPSULE PO SCH (10:06)
[2019-05-21] MEDS: GABAPENTIN 100 MG CAPSULE PO SCH ×2 (10:06→21:14)
[2019-05-21] MEDS: VENLAFAXINE 37.5 MG TABLET PO SCH ×2 (10:08→21:16)
[2019-05-21] MEDS: BUDESONIDE/FORMOTEROL 160-4.5 INHALER 6 GM INH SCH ×2 (10:08→21:17)
[2019-05-21] MEDS: NEBIVOLOL 10 MG TABLET PO SCH ×2 (11:31→21:15)
[2019-05-21] MEDS: LOSARTAN 25 MG TABLET PO SCH ×2 (11:32→21:16)
[2019-05-21] MEDS: NITROGLYCERIN 2% OINT 1 INCH/GM PACK TOP SCH ×2 (12:14→17:20)
[2019-05-21] MEDS: ROSUVASTATIN 20 MG TABLET PO SCH (21:15)
[2019-05-21] MEDS: MONTELUKAST 10 MG TABLET PO SCH (21:15)
[2019-05-22] MEDS: NITROGLYCERIN 2% OINT 1 INCH/GM PACK TOP SCH ×4 (00:06→17:13)
[2019-05-22] MEDS: KETOROLAC 30 MG/1 ML VIAL IV SCH ×4 (04:06→21:25)
[2019-05-22 05:04] LABS: Basophils # 0.1 10*3/uL (0.0-0.2); Basophils % 0.7 % (0.0-0.8); Eosinophils # 0.6 10*3/uL (0.0-0.87); Eosinophils % 3.6 % (0.00-10.9); Hematocrit 26.6 VOL% (35.7-47.0); Hemoglobin 8.1 GM/DL (12.0-16.0); Immature Granulocytes % 1.1 %; Lymphocytes # 2.6 10*3/uL (1.4-4.0); Lymphocytes % 15.1 % (21.3-54.2); Mean Corpuscular HGB Conc 30.5 GM/DL (32-36); Mean Corpuscular Volume 92.7 FL (87-102); Mean Platelet Volume 10.3 FL (9.6-12.0); Monocytes % 8.1 % (1.7-12.7); Neutrophils % 71.4 % (38.7-73.9); Platelet Count 309 T/CUMM (130-400); Red Blood Count 2.87 MC/CUMM (3.8-5.5); Red Cell Distribution Width 14.8 % (9.3-17.3); White Blood Count 17.5 T/CUMM (4-12)
[2019-05-22 05:27] LABS: Albumin 2.4 G/DL (3.4-5.0); Bilirubin,Direct 0.16 MG/DL (0.0-0.20); Bilirubin,Indirect 0.4 MG/DL (0.0-1.0); Bilirubin,Total 0.6 MG/DL (0.2-1.0); CKMB % 1.9 %; Calcium 8.7 MG/DL (8.5-10.1); Osmolality,Calculated 273.1 MOS/KG (273-304)
[2019-05-22 05:29] LABS: Troponin I 3.96 NG/ML (0.00-0.045)
[2019-05-22] MEDS: MULTIVITAMIN (OCUVITE) TABLET PO SCH ×2 (08:54→21:24)
[2019-05-22] MEDS: THEOPHYLLINE ER 300 MG TABLET PO SCH ×2 (08:54→17:14)
[2019-05-22] MEDS: traMADol 50 MG TABLET PO SCH ×2 (08:55→21:24)
[2019-05-22] MEDS: FAMOTIDINE 20 MG TABLET PO SCH ×2 (08:55→21:23)
[2019-05-22] MEDS: CHLORHEXIDINE 0.12% ORAL RINSE 60 ML BOTTLE SWISH/SPIT SCH ×2 (08:55→21:25)
[2019-05-22] MEDS: FERROUS SULFATE 325 MG TABLET PO SCH (08:55)
[2019-05-22] MEDS: CYCLOBENZAPRINE 10 MG TABLET PO SCH ×2 (08:55→21:22)
[2019-05-22] MEDS: VENLAFAXINE 37.5 MG TABLET PO SCH ×2 (08:55→21:23)
[2019-05-22] MEDS: GABAPENTIN 100 MG CAPSULE PO SCH ×2 (08:55→21:24)
[2019-05-22] MEDS: PRIMIDONE 50 MG TABLET PO SCH ×2 (08:56→21:23)
[2019-05-22] MEDS: DOCUSATE SODIUM 100 MG CAPSULE PO SCH (08:56)
[2019-05-22] MEDS: ASPIRIN EC 325 MG TABLET PO SCH (08:56)
[2019-05-22] MEDS: NEBIVOLOL 10 MG TABLET PO SCH ×2 (08:58→21:24)
[2019-05-22] MEDS: LOSARTAN 25 MG TABLET PO SCH ×2 (08:59→21:23)
[2019-05-22] MEDS: FUROSEMIDE 40 MG/4 ML VIAL IV SCH (12:23)
[2019-05-22] MEDS: BUDESONIDE/FORMOTEROL 160-4.5 INHALER 6 GM INH SCH ×2 (12:24→21:25)
[2019-05-22] MEDS: ROSUVASTATIN 20 MG TABLET PO SCH (21:24)
[2019-05-22] MEDS: MONTELUKAST 10 MG TABLET PO SCH (21:24)
[2019-05-23] MEDS: NITROGLYCERIN 2% OINT 1 INCH/GM PACK TOP SCH ×4 (01:09→18:17)
[2019-05-23 04:40] LABS: Basophils # 0.1 10*3/uL (0.0-0.2); Basophils % 0.8 % (0.0-0.8); Eosinophils # 0.9 10*3/uL (0.0-0.87); Eosinophils % 6.6 % (0.00-10.9); Immature Granulocytes Absolute 0.28 #; Lymphocytes # 2.7 10*3/uL (1.4-4.0); Lymphocytes % 19.3 % (21.3-54.2); Mean Corpuscular Volume 89.9 FL (87-102); Mean Platelet Volume 10.2 FL (9.6-12.0); Neutrophils % 60.3 % (38.7-73.9); Platelet Count 323 T/CUMM (130-400); Red Blood Count 2.78 MC/CUMM (3.8-5.5); Red Cell Distribution Width 14.8 % (9.3-17.3)
[2019-05-23 05:01] LABS: Calcium 8.7 MG/DL (8.5-10.1)
[2019-05-23] MEDS: oxyCODONE/ACETAMINOPHEN 5-325 MG TABLET PO PRN ×2 (06:28→12:52)
[2019-05-23] MEDS: traMADol 50 MG TABLET PO SCH ×2 (08:20→20:46)
[2019-05-23] MEDS: FAMOTIDINE 20 MG TABLET PO SCH ×2 (08:20→20:46)
[2019-05-23] MEDS: THEOPHYLLINE ER 300 MG TABLET PO SCH ×2 (08:20→16:28)
[2019-05-23] MEDS: GABAPENTIN 100 MG CAPSULE PO SCH ×2 (08:21→20:46)
[2019-05-23] MEDS: MULTIVITAMIN (OCUVITE) TABLET PO SCH ×2 (08:21→20:46)
[2019-05-23] MEDS: NEBIVOLOL 10 MG TABLET PO SCH ×2 (08:21→21:00)
[2019-05-23] MEDS: PRIMIDONE 50 MG TABLET PO SCH ×2 (08:24→20:47)
[2019-05-23] MEDS: ASPIRIN EC 81 MG TABLET PO SCH (08:24)
[2019-05-23] MEDS: VENLAFAXINE 37.5 MG TABLET PO SCH ×2 (08:24→20:47)
[2019-05-23] MEDS: LOSARTAN 25 MG TABLET PO SCH ×2 (08:24→20:47)
[2019-05-23] MEDS: CYCLOBENZAPRINE 10 MG TABLET PO SCH ×2 (08:24→20:47)
[2019-05-23] MEDS: FERROUS SULFATE 325 MG TABLET PO SCH (08:24)
[2019-05-23] MEDS: DOCUSATE SODIUM 100 MG CAPSULE PO SCH (08:24)
[2019-05-23] MEDS: FUROSEMIDE 40 MG/4 ML VIAL IV SCH (08:25)
[2019-05-23] MEDS: CHLORHEXIDINE 0.12% ORAL RINSE 60 ML BOTTLE SWISH/SPIT SCH ×2 (08:31→21:00)
[2019-05-23] MEDS: BUDESONIDE/FORMOTEROL 160-4.5 INHALER 6 GM INH SCH ×2 (08:32→20:47)
[2019-05-23] MEDS ORDERED: SODIUM CHLORIDE 0.9% 1,000 ML IV PRN (15:24)
[2019-05-23] MEDS ORDERED: FUROSEMIDE 40 MG/4 ML VIAL IV ONE (15:26)
[2019-05-23] MEDS: ROSUVASTATIN 20 MG TABLET PO SCH (20:46)
[2019-05-23] MEDS: MONTELUKAST 10 MG TABLET PO SCH (20:46)
[2019-05-24] MEDS: NITROGLYCERIN 2% OINT 1 INCH/GM PACK TOP SCH ×2 (00:07→05:05)
[2019-05-24] MEDS: oxyCODONE/ACETAMINOPHEN 5-325 MG TABLET PO PRN ×2 (00:21→10:54)
[2019-05-24 06:37] LABS: Basophils % 0.2 % (0.0-0.8); Eosinophils # 0.8 10*3/uL (0.0-0.87); Eosinophils % 6.3 % (0.00-10.9); Hemoglobin 9.8 GM/DL (12.0-16.0); Immature Granulocytes % 3.8 %; Immature Granulocytes Absolute 0.48 #; Lymphocytes # 2.4 10*3/uL (1.4-4.0); Lymphocytes % 19.4 % (21.3-54.2); Mean Corpuscular HGB Conc 31.6 GM/DL (32-36); Mean Corpuscular Volume 89.3 FL (87-102); Mean Platelet Volume 9.7 FL (9.6-12.0); Monocytes % 12.6 % (1.7-12.7); Neutrophils % 57.7 % (38.7-73.9); Platelet Count 340 T/CUMM (130-400); Red Blood Count 3.47 MC/CUMM (3.8-5.5); Red Cell Distribution Width 17.1 % (9.3-17.3); White Blood Count 12.5 T/CUMM (4-12)
[2019-05-24 06:55] LABS: Hypochromasia 1+; Platelet Estimate Adequate
[2019-05-24 07:00] LABS: Alanine Aminotransferase 25 U/L (13-56); Albumin 2.4 G/DL (3.4-5.0); Alkaline Phosphatase 86 U/L (45-117); Aspartate Amino Transferase 25 U/L (0-37); Bilirubin,Indirect 0.5 MG/DL (0.0-1.0); Blood Urea Nitrogen 20 MG/DL (7-18); Estimated Glom Filtration Rate 77 ML/MIN; Glucose 95 MG/DL (74-106); Osmolality,Calculated 275.8 MOS/KG (273-304); Total Protein 6.2 G/DL (6.4-8.3)
[2019-05-24] MEDS: MULTIVITAMIN (OCUVITE) TABLET PO SCH (08:39)
[2019-05-24] MEDS: NEBIVOLOL 10 MG TABLET PO SCH (08:39)
[2019-05-24] MEDS: CYCLOBENZAPRINE 10 MG TABLET PO SCH (08:39)
[2019-05-24] MEDS: LOSARTAN 25 MG TABLET PO SCH (08:39)
[2019-05-24] MEDS: PRIMIDONE 50 MG TABLET PO SCH (08:39)
[2019-05-24] MEDS: GABAPENTIN 100 MG CAPSULE PO SCH (08:40)
[2019-05-24] MEDS: DOCUSATE SODIUM 100 MG CAPSULE PO SCH (08:40)
[2019-05-24] MEDS: FERROUS SULFATE 325 MG TABLET PO SCH (08:40)
[2019-05-24] MEDS: VENLAFAXINE 37.5 MG TABLET PO SCH (08:40)
[2019-05-24] MEDS: traMADol 50 MG TABLET PO SCH (08:40)
[2019-05-24] MEDS: THEOPHYLLINE ER 300 MG TABLET PO SCH (08:40)
[2019-05-24] MEDS: FAMOTIDINE 20 MG TABLET PO SCH (08:41)
[2019-05-24] MEDS: ASPIRIN EC 81 MG TABLET PO SCH (08:41)
[2019-05-24] MEDS: BUDESONIDE/FORMOTEROL 160-4.5 INHALER 6 GM INH SCH (08:43)
[2019-05-24] MEDS: CHLORHEXIDINE 0.12% ORAL RINSE 60 ML BOTTLE SWISH/SPIT SCH (08:43)
[2019-05-24] MEDS ORDERED: FUROSEMIDE 40 MG TABLET PO SCH (09:00)
[2019-05-24] MEDS ORDERED: ISOSORBIDE MONONITRATE 30 MG TABLET PO SCH (09:00)
[2019-05-24 12:17] VITALS: BP 122/64
== END 2019-05-24 13:40 | disposition home health service (06) | DRG 235 ==
LOC: N.4E 05-17 08:55 → N.CVR 05-18 12:05 → N.ICU 05-19 10:38 → N.TELES 05-20 09:52

== ENCOUNTER 2020-04-12 19:05 | Inpatient (IN) ==
[2020-04-12] MEDS ORDERED: ONDANSETRON 4 MG/2 ML VIAL ONE (19:30)
[2020-04-12] MEDS ORDERED: ASPIRIN 325 MG TABLET ONE (19:31)
[2020-04-12] MEDS ORDERED: MORPHINE 4 MG/1 ML VIAL ONE (19:31)
[2020-04-12] MEDS ORDERED: MORPHINE 4 MG/1 ML VIAL IV STA (19:37)
[2020-04-12] MEDS ORDERED: ASPIRIN 325 MG TABLET PO STA (19:37)
[2020-04-12] MEDS ORDERED: SODIUM CHLORIDE 0.9% 1,000 ML IV STA (19:37)
[2020-04-12] MEDS ORDERED: ONDANSETRON 4 MG/2 ML VIAL IV STA (19:37)
[2020-04-12 19:49] LABS: Basophils # 0.1 10*3/uL (0.0-0.2); Basophils % 1.2 % (0.0-0.8); Eosinophils # 0.4 10*3/uL (0.0-0.87); Eosinophils % 3.8 % (0.00-10.9); Hematocrit 40.1 VOL% (35.7-47.0); Hemoglobin 13.4 GM/DL (12.0-16.0); Immature Granulocytes % 0.6 %; Immature Granulocytes Absolute 0.07 #; Lymphocytes # 3.2 10*3/uL (1.4-4.0); Lymphocytes % 28.7 % (21.3-54.2); Mean Corpuscular HGB Conc 33.4 GM/DL (32-36); Mean Corpuscular Volume 97.6 FL (87-102); Mean Platelet Volume 9.9 FL (9.6-12.0); Monocytes % 8.4 % (1.7-12.7); Neutrophils % 57.3 % (38.7-73.9); Platelet Count 353 T/CUMM (130-400); Red Blood Count 4.11 MC/CUMM (3.8-5.5); Red Cell Distribution Width 14.6 % (9.3-17.3)
[2020-04-12 19:57] LABS: PT Patient Result 10.9 SECS (9.8-11.9)
[2020-04-12 20:00] LABS: Albumin 3.5 G/DL (3.4-5.0); Bilirubin,Total 0.4 MG/DL (0.2-1.0); Calcium 9.1 MG/DL (8.5-10.1); Osmolality,Calculated 273.8 MOS/KG (273-304); Potassium 3.4 MMOL/L (3.5-5.1); Total Protein 7.2 G/DL (6.4-8.3)
[2020-04-12] MEDS ORDERED: LIDOCAINE 1% 20 ML VIAL ONE (20:10)
[2020-04-12] MEDS ORDERED: HEPARIN/NACL 0.9% 2 UNITS/ML 1,000 ML IV ONE (20:10)
[2020-04-12] MEDS ORDERED: HYDROmorphone 2 MG/1 ML VIAL ONE (20:15)
[2020-04-12] MEDS ORDERED: MIDAZOLAM 2 MG/2 ML VIAL ONE ×2 (20:15→21:29)
[2020-04-12] MEDS ORDERED: NITROGLYCERIN 2% OINT 1 INCH/GM PACK TOP ONE (20:16)
[2020-04-12] MEDS ORDERED: NITROGLYCERIN 2% OINT 1 INCH/GM PACK TOP STA (20:16)
[2020-04-12] MEDS ORDERED: VERAPAMIL 5 MG/2 ML VIAL ONE (20:19)
[2020-04-12] MEDS ORDERED: NITROGLYCERIN DRIP 50 MG/250 ML BOTTLE IV ONE (20:19)
[2020-04-12] MEDS ORDERED: ENOXAPARIN 30 MG/0.3 ML SYRINGE ONE (20:40)
[2020-04-12] MEDS ORDERED: BIVALIRUDIN 250 MG VIAL IV ONE (21:02)
[2020-04-12] MEDS ORDERED: HEPARIN/NACL 0.9% 2 UNITS/ML 500 ML IV ONE (21:11)
[2020-04-12] MEDS ORDERED: TICAGRELOR 90 MG TABLET ONE (21:54)
[2020-04-12] MEDS ORDERED: MAGNESIUM SULF RIDER 4 GM in PREMIX 1 EACH IV PRN (22:01)
[2020-04-12] MEDS ORDERED: MAGNESIUM SULF RIDER 2 GM in PREMIX 1 EACH IV PRN (22:01)
[2020-04-12] MEDS ORDERED: ZALEPLON 5 MG CAPSULE PO PRN (22:01)
[2020-04-12] MEDS ORDERED: ALBUTEROL/IPRATROPIUM 3 ML NEB RESP TX PRN (22:05)
[2020-04-12] MEDS ORDERED: NITROGLYCERIN SL 0.4 MG TABLET SL PRN (22:05)
[2020-04-12] MEDS ORDERED: POTASSIUM CHLORIDE 20 MEQ TABLET PO ONE (22:20)
[2020-04-12] MEDS ORDERED: SODIUM CHLORIDE 0.9% 1,000 ML IV SCH (22:30)
[2020-04-12 23:21] LABS: Troponin I 36.4 NG/ML (0.00-0.045)
[2020-04-13 05:04] LABS: Calcium 8.8 MG/DL (8.5-10.1); Osmolality,Calculated 277.5 MOS/KG (273-304); Potassium 5.1 MMOL/L (3.5-5.1)
[2020-04-13 05:21] LABS: CKMB % 10.4 %
[2020-04-13 06:32] LABS: Basophils # 0.1 10*3/uL (0.0-0.2); Basophils % 0.9 % (0.0-0.8); Eosinophils # 0.2 10*3/uL (0.0-0.87); Eosinophils % 1.4 % (0.00-10.9); Hemoglobin 12.1 GM/DL (12.0-16.0); Immature Granulocytes % 0.6 %; Immature Granulocytes Absolute 0.07 #; Lymphocytes # 2.2 10*3/uL (1.4-4.0); Lymphocytes % 18.5 % (21.3-54.2); Mean Corpuscular HGB Conc 31.8 GM/DL (32-36); Mean Corpuscular Volume 102.2 FL (87-102); Monocytes % 8.3 % (1.7-12.7); Neutrophils % 70.3 % (38.7-73.9); Platelet Count 305 T/CUMM (130-400); Red Blood Count 3.72 MC/CUMM (3.8-5.5); Red Cell Distribution Width 14.6 % (9.3-17.3); White Blood Count 11.7 T/CUMM (4-12)
[2020-04-13] MEDS ORDERED: POTASSIUM CHLORIDE 10 MEQ TABLET PO SCH (09:00)
[2020-04-13] MEDS ORDERED: POTASSIUM CHLORIDE 20 MEQ TABLET PO SCH (09:00)
[2020-04-13] MEDS: COLCHICINE 0.6 MG CAPSULE PO SCH ×2 (09:23→20:37)
[2020-04-13] MEDS: ASPIRIN EC 81 MG TABLET PO SCH (09:24)
[2020-04-13] MEDS: TICAGRELOR 90 MG TABLET PO SCH ×2 (09:25→20:37)
[2020-04-13] MEDS: cilostazoL 50 MG TABLET PO SCH ×2 (09:25→20:37)
[2020-04-13] MEDS: SPIRONOLACTONE 25 MG TABLET PO SCH (09:25)
[2020-04-13] MEDS: NEBIVOLOL 10 MG TABLET PO SCH ×2 (09:25→20:37)
[2020-04-13] MEDS: FUROSEMIDE 40 MG TABLET PO SCH (09:27)
[2020-04-13] MEDS: BUDESONIDE/FORMOTEROL 160-4.5 INHALER 6 GM INH SCH ×2 (09:27→20:38)
[2020-04-13 14:44] LABS: CKMB % 9.2 %
[2020-04-13 14:46] LABS: Troponin I 64.6 NG/ML (0.00-0.045)
[2020-04-13] MEDS: ONDANSETRON 4 MG/2 ML VIAL IV PRN (18:05)
[2020-04-13] MEDS: ATORVASTATIN 40 MG TABLET PO SCH (20:37)
[2020-04-14 07:55] LABS: Basophils # 0.1 10*3/uL (0.0-0.2); Basophils % 1.2 % (0.0-0.8); Eosinophils # 0.2 10*3/uL (0.0-0.87); Eosinophils % 2.8 % (0.00-10.9); Hematocrit 39.7 VOL% (35.7-47.0); Hemoglobin 13.7 GM/DL (12.0-16.0); Immature Granulocytes % 0.5 %; Immature Granulocytes Absolute 0.04 #; Lymphocytes # 1.7 10*3/uL (1.4-4.0); Lymphocytes % 19.6 % (21.3-54.2); Mean Corpuscular HGB Conc 34.5 GM/DL (32-36); Mean Corpuscular Volume 96.1 FL (87-102); Monocytes % 9.1 % (1.7-12.7); Neutrophils % 66.8 % (38.7-73.9); Platelet Count 342 T/CUMM (130-400); Red Blood Count 4.13 MC/CUMM (3.8-5.5); Red Cell Distribution Width 14.6 % (9.3-17.3); White Blood Count 8.6 T/CUMM (4-12)
[2020-04-14 08:14] LABS: Calcium 9.1 MG/DL (8.5-10.1); Osmolality,Calculated 278.4 MOS/KG (273-304); Potassium 3.6 MMOL/L (3.5-5.1)
[2020-04-14] MEDS: ONDANSETRON 4 MG/2 ML VIAL IV PRN (08:53)
[2020-04-14 09:05] LABS: Troponin I 21.2 NG/ML (0.00-0.045)
[2020-04-14] MEDS: ASPIRIN EC 81 MG TABLET PO SCH (09:48)
[2020-04-14] MEDS: NEBIVOLOL 10 MG TABLET PO SCH ×2 (09:48→21:32)
[2020-04-14] MEDS: FUROSEMIDE 40 MG TABLET PO SCH (09:48)
[2020-04-14] MEDS: SPIRONOLACTONE 25 MG TABLET PO SCH (09:49)
[2020-04-14] MEDS: cilostazoL 50 MG TABLET PO SCH ×2 (09:49→21:33)
[2020-04-14] MEDS: TICAGRELOR 90 MG TABLET PO SCH ×2 (09:50→21:32)
[2020-04-14] MEDS: COLCHICINE 0.6 MG CAPSULE PO SCH (09:51)
[2020-04-14] MEDS: BUDESONIDE/FORMOTEROL 160-4.5 INHALER 6 GM INH SCH (09:52)
[2020-04-14] MEDS: ATORVASTATIN 40 MG TABLET PO SCH (21:32)
[2020-04-15 06:18] LABS: Basophils # 0.1 10*3/uL (0.0-0.2); Basophils % 1.1 % (0.0-0.8); Eosinophils # 0.4 10*3/uL (0.0-0.87); Eosinophils % 3.2 % (0.00-10.9); Hematocrit 39.4 VOL% (35.7-47.0); Hemoglobin 13.1 GM/DL (12.0-16.0); Immature Granulocytes % 0.7 %; Immature Granulocytes Absolute 0.08 #; Lymphocytes # 2.5 10*3/uL (1.4-4.0); Mean Corpuscular HGB Conc 33.2 GM/DL (32-36); Mean Corpuscular Volume 98.7 FL (87-102); Monocytes % 10.7 % (1.7-12.7); Neutrophils % 62.3 % (38.7-73.9); Platelet Count 330 T/CUMM (130-400); Red Blood Count 3.99 MC/CUMM (3.8-5.5); Red Cell Distribution Width 14.3 % (9.3-17.3); White Blood Count 11.6 T/CUMM (4-12)
[2020-04-15 06:49] LABS: Calcium 9.9 MG/DL (8.5-10.1); Osmolality,Calculated 274.8 MOS/KG (273-304); Potassium 4.2 MMOL/L (3.5-5.1)
[2020-04-15 06:54] LABS: CKMB % 3.8 %; Troponin I 12.3 NG/ML (0.00-0.045)
[2020-04-15 08:20] VITALS: BP 130/65
[2020-04-15] MEDS ORDERED: FUROSEMIDE 40 MG/4 ML VIAL IV ONE (08:28)
[2020-04-15] MEDS: cilostazoL 50 MG TABLET PO SCH (09:42)
[2020-04-15] MEDS: ASPIRIN EC 81 MG TABLET PO SCH (09:42)
[2020-04-15] MEDS: SPIRONOLACTONE 25 MG TABLET PO SCH (09:42)
[2020-04-15] MEDS: NEBIVOLOL 10 MG TABLET PO SCH (09:42)
[2020-04-15] MEDS: TICAGRELOR 90 MG TABLET PO SCH (09:43)
[2020-04-15] MEDS: FUROSEMIDE 40 MG TABLET PO SCH (09:44)
[2020-04-15] MEDS: BUDESONIDE/FORMOTEROL 160-4.5 INHALER 6 GM INH SCH (09:47)
[2020-04-16] MEDS ORDERED: LOSARTAN 25 MG TABLET PO SCH (12:00)
== END 2020-04-15 11:06 | disposition home or self-care (01) | DRG 246 ==
LOC: N.ED 19:05 → N.EDINP 20:23 → N.ICU 20:26 → N.TELES 04-13 14:52
PROVIDERS: ADMIT Internal Medicine Cardiovascular Disease; ATTEND Internal Medicine Cardiovascular Disease